=== PATIENT | male | born 1975 | race Caucasian/White ===

== ENCOUNTER 2024-12-21 10:33 | Outpatient (CLI) | payer OTHER | END 2024-12-21 10:34 | disposition home or self-care (01) | LOC: CSHCT 10:33 | PROVIDERS: ATTEND Orthopaedic Surgery | DX: S83.422A Sprain of lateral collateral ligament of left knee, initial encounter (principal); S62.212A Bennett's fracture, left hand, initial encounter for closed fracture; S83.282A Other tear of lateral meniscus, current injury, left knee, initial encounter; S86.112A Strain of other muscle(s) and tendon(s) of posterior muscle group at lower leg level, left leg, initial encounter; S83.8X2A Sprain of other specified parts of left knee, initial encounter; S83.522A Sprain of posterior cruciate ligament of left knee, initial encounter; M23.8X2 Other internal derangements of left knee; S62.232A Other displaced fracture of base of first metacarpal bone, left hand, initial encounter for closed fracture; Z87.81 Personal history of (healed) traumatic fracture ==